=== PATIENT | female | born 1940 | race Caucasian/White ===

== ENCOUNTER → 2017-01-13 | Outpatient (CLI) | payer MEDICARE, BC ==
[~2017-01-13] MED LIST: ASPIRINEC PO; BENADRYL PO; CALCIUM/MAG/VIT D; DEMEROL; FLAGYL PO; KEFLEX PO; MEDROL PO; MULTI-VITAMIN1 TAB; NO MEDICATIONS; PROBIOTIC1 EAC1 PO
--- NOTE | ~2017-01-13 | TH ---
Unit #: [id number] #: [id number] Patient: SUSIE HIGUERA [id number] [address] [address] [id number] O MR#: [id number] NAME: SUSIE HIGUERA. : 1940 SEX: F STUDY DATE/TIME: UNIT: [facility] ROOM: STUDY DESCRIPTION: Nuclear Study Attending Physician: Franklyn Bardales M.D. Referring Physician: Franklyn Bardales M.D. Primary Care Physician: Franklyn Bardales M.D. CARDIOLOGY REPORT EXAM Lexiscan Cardiolite Stress Test - Nuclear Portion DESCRIPTION Using technetium 99m labeled Cardiolite, rest and stress SPECT images were obtained. Multiple SPECT images were obtained in various views including horizontal and vertical long axis and short axis views of the left ventricle. Images were obtained by gated SPECT method. The patient was administered 11.93 mCi of Cardiolite at rest. The patient was administered 36.0 mCi of Cardiolite after Lexiscan infusion was completed. On the stress images, there is a small area of moderate decreased isotope activity in the anteroseptal wall. The rest images show a small area of moderate decreased isotope activity anteroseptally. Comparing rest and stress images, there is suspicion for a small myocardial infarction involving the anteroseptal wall of the left ventricle. The left ventricular ejection fraction is calculated to be 78%. There is mild septal hypokinesis seen. CONCLUSION 1. Suspicion for possible small myocardial infarction involving the anteroseptal wall of the left ventricle. 2. No obvious stress-induced ischemia noted. 3. The left ventricular ejection fraction is calculated to be 78%. 4. The left ventricular size is small. 5. Technically limited study. Clinical correlation is requested. Dictated by... Scarlett Driscoll TD: 01/13/2017 12:41 JOB #: [id number] Unit #: [id number] #: [id number] Patient: SUSIE HIGUERA CARDIOLOGY REPORT X Shilpi Eaton MD <ELECTRONICALLY SIGNED> 05/29/17 1429 CARDIOLOGY REPORT
--- NOTE | ~2017-01-13 | ST ---
Unit #: [id number] #: [id number] Patient: SUSIE HIGUERA [id number] [address] [address] [id number] O MR#: [id number] NAME: SUSIE HIGUERA : 1940 SEX: F STUDY DATE/TIME: 01/13/2017 UNIT: [facility] ROOM: STUDY DESCRIPTION: Stress Test Attending Physician: Franklyn Bardales M.D. Referring Physician: Franklyn Bardales M.D. Primary Care Physician: Franklyn Bardales M.D. CARDIOLOGY REPORT EXAM EKG Portion of a Lexiscan Cardiolite Stress Test REASON FOR EXAM Shortness of breath and chest pain. DESCRIPTION Baseline EKG shows sinus bradycardia with a rate of 51 beats per minute. A total of 0.4 mg of Lexiscan was injected per protocol followed by Cardiolite. The patient's symptoms included severe shortness of breath. There were no obvious ST changes or arrhythmias. The test was stopped due to protocol completion. IMPRESSION 1. This is a nondiagnostic test. 2. No ST segment changes. 3. Symptoms included severe shortness of breath which persisted into recovery but resolved after four minutes. 4. No arrhythmias. 5. Please correlate with Cardiolite imaging. Dictated by... Bindu Jerez APRN for Scarlett Driscoll TD: 01/13/2017 09:35 JOB #: [id number] CARDIOLOGY REPORT X CARDIOLOGY REPORT
== END | disposition home or self-care (01) ==
LOC: CNUC 07:20
DX: R06.02 Shortness of breath (principal); R07.89 Other chest pain; I10 Essential (primary) hypertension
CPT/HCPCS: 78452; 93017; A9500; J2785

== ENCOUNTER → 2017-05-05 | Outpatient (CLI) | payer MEDICARE, BC ==
--- NOTE | ~2017-05-05 | CR63 ---
[facility] A Service of [facility] & [facility] RADIOLOGY TEXT RESULTS PATIENT: SUSIE HIGUERA LOCATION: [facility] : 36 UNIT #: [id number] AGE: [address]: MONIQUE HAYES APRN SEX: F ORDER DR: [id number] [facility] [address] [place], [place] [address] [id number] O MR#: [id number] Acc #: [id number] NAME: SUSIE HIGUERA : 1940 SEX: F STUDY DATE/TIME: 05/05/2017 9:38 UNIT: [facility] ROOM: STUDY DESCRIPTION: CR Chest 2 View Attending Physician: Monique Hayes Np Referring Physician: Monique Hayes Np Ordering Physician: Monique Hayes Np Primary Care Physician: Franklyn Bardales M.D. MEDICAL IMAGING REPORT This report is preliminary unless electronic signature is present EXAM Chest 05/05/2017 HISTORY 77-year-old woman, acute upper respiratory infection, cough, congestion, short of air. Symptoms for over a week. COMPARISON Chest 01/08/2007 FINDINGS Two-view chest demonstrates normal stable cardiac size and configuration. Hilar structures are preserved. There is a vertically oriented left lung density extending from hilar structures to the medial aspect of the hemidiaphragm. I expect this represents segmental infiltrate and atelectasis. Right lung is clear. IMPRESSION Segmental infiltrate and associated atelectasis left lower lobe. Short-interval followup recommended as CT may be appropriate. Dictated by... Jorge Marc M.D. THIS IS AN ELECTRONICALLY VERIFIED REPORT Jorge Marc M.D. at 05/06/2017 8:10 AM Maurilio TD: 05/05/2017 17:09 JOB #: [id number] MEDICAL IMAGING REPORT Page 1 of 1 COPY
== END | disposition home or self-care (01) ==
LOC: CRAD 09:17
DX: J06.9 Acute upper respiratory infection, unspecified (principal); R91.8 Other nonspecific abnormal finding of lung field; J98.11 Atelectasis
CPT/HCPCS: 71020

== ENCOUNTER → 2017-05-18 | Outpatient (CLI) | payer MEDICARE, BC ==
--- NOTE | ~2017-05-18 | CR63 ---
[facility] A Service of [facility] & [facility] RADIOLOGY TEXT RESULTS PATIENT: SUSIE HIGUERA LOCATION: [facility] : 36 UNIT #: [id number] AGE: [address]: Franklyn Bardales MD SEX: F ORDER DR: [id number] [facility] [address] [place], [place] [address] [id number] O MR#: [id number] Acc #: [id number] NAME: SUSIE HIGUERA : 1940 SEX: F STUDY DATE/TIME: 05/18/2017 15:30 UNIT: [facility] ROOM: STUDY DESCRIPTION: CR Chest 2 View Attending Physician: Franklyn Bardales M.D. Ordering Physician: Franklyn Bardales M.D. Primary Care Physician: Franklyn Bardales M.D. MEDICAL IMAGING REPORT This report is preliminary unless electronic signature is present EXAM Chest x-ray HISTORY Cough, pneumonia, shortness of breath and congestion for the past 3 weeks. TECHNIQUE Two views of the chest were obtained. FINDINGS Comparison is made to previous examination from 05/05/2017. The linear density in the left lung base seen on the previous examination shows near complete clearing. No new infiltrates are seen. No pleural fluid is noted. Vascular markings are normal. IMPRESSION There has been near complete clearing of the linear density at the left lung base when compared to the previous exam. Dictated by... Joe Mott M.D. THIS IS AN ELECTRONICALLY VERIFIED REPORT Joe Mott M.D. at 05/19/2017 9:35 AM CONSTANTIN/sharifa TD: 05/19/2017 08:02 JOB #: [id number] MEDICAL IMAGING REPORT Page 1 of 1 COPY
== END | disposition home or self-care (01) ==
LOC: CRAD 15:08
DX: J18.9 Pneumonia, unspecified organism (principal); J98.4 Other disorders of lung
CPT/HCPCS: 71020